=== PATIENT | female | born 1955 | race Caucasian/White ===

== ENCOUNTER 2022-12-18 15:44 | Emergency (ER) | payer MEDICARE ==
[~2022-12-18] VITALS: Ht 170.2 cm; Wt 56.0 kg
[2022-12-18 15:51] VITALS: O2SAT 98
[2022-12-18 16:47] LABS: BASOPHILS % 0.7 % (0.0-2.0); EOSINOPHILS % 1.1 % (0.0-5.0); HEMATOCRIT. 37.3 % (36.0-48.0); HEMOGLOBIN. 12.8 g/dL (12.0-16.0); MEAN CORPUSCULAR HEMOGLOBIN 28.1 pg (28.0-32.0); MEAN CORPUSCULAR HGB CONC 34.3 g/dL (31.0-37.0); MEAN PLATELET VOLUME 8.7 fl (7.4-10.4); NEUTROPHILS % 73.2 % (40.0-76.0); PLATELET 273 x1000/uL (130-400); RED BLOOD CELL COUNT 4.54 mill/uL (4.2-5.4); RED CELL DISTRIBUTION WIDTH 13.7 % (11.6-14.6); WHITE BLOOD COUNT 8.8 x1000/uL (4.5-11.0)
[2022-12-18] MEDS ORDERED: MORPHINE SULFATE 4 MG/ML CPJ (NOT FOR IM USE) IV ONE (17:00)
[2022-12-18] MEDS ORDERED: ONDANSETRON HCL 4MG/2ML INJ IV ONE (17:00)
[2022-12-18 17:04] LABS: CHLORIDE 108 mEq/L (98-107); INDEX HEMOLYSI 1 (1-3); INDEX ICTERIC 1 (1-4); INDEX LIPEMIC 1 (1-3); POTASSIUM 3.5 mEq/L (3.5-5.1); SODIUM 139 mEq/L (136-145)
[2022-12-18 17:14] LABS: ALANINE AMINOTRANSFERASE 21 IU/L (13-61); ALBUMIN 3.9 g/dL (3.4-5.0); ASPARTATE AMINOTRANSFERASE 23 IU/L (15-37); BILIRUBIN TOTAL 0.4 mg/dL (0.1-1.0); CALCIUM 8.7 mg/dL (8.5-10.1); CARBON DIOXIDE 26 mEq/L (21-32); CREATININE 0.8 mg/dL (0.6-1.3); GLUCOSE 125 mg/dL (70-105); NT PRO B-TYPE NATRIURETIC PEP 77 pg/mL (5-125); PROTEIN TOTAL 7.5 g/dL (6.0-8.3); TROPONIN I HIGH SENSITIVITY 7 ng/L (<54); UREA NITROGEN BLOOD 21 mg/dL (7-21)
[2022-12-18] MEDS ORDERED: HYDROMORPHONE HCL/PF 2MG/ML CPJ IV ONE ×2 (17:30→19:15)
[2022-12-18] MEDS ORDERED: LORAZEPAM 2MG/ML CPJ IV ONE (19:15)
[2022-12-18] MEDS ORDERED: SODIUM CHLORIDE 0.9% 1,000 ML IV ONE (19:15)
[2022-12-18] MEDS ORDERED: NALOXONE HCL 1 MG/ML 2ML VIAL ONE (20:16)
[2022-12-19] MEDS ORDERED: HYDROMORPHONE HCL/PF 2MG/ML CPJ IV ONE ×3 (01:45→09:45)
[2022-12-19] MEDS ORDERED: ONDANSETRON HCL 4MG/2ML INJ IV ONE ×3 (02:00→10:00)
[2022-12-19] MEDS ORDERED: HEPARIN 5000 UNITS/ML VIAL SUBCUT ONE (08:45)
[2022-12-19] MEDS ORDERED: ONDANSETRON HCL 4MG/2ML INJ IV NR (10:00)
[2022-12-19 10:05] VITALS: BP 133/69; PULSE 81; RESP 11; TEMP 98
== END 2022-12-19 10:01 | disposition short-term general hospital (02) ==
LOC: ER 15:44 → CANBEDREQ 12-19 09:59 → ER 12-19 10:01
DX: S72.91XA Unspecified fracture of right femur, initial encounter for closed fracture (principal); W01.0XXA Fall on same level from slipping, tripping and stumbling without subsequent striking against object, initial encounter; Y93.89 Activity, other specified; Y92.89 Other specified places as the place of occurrence of the external cause; Y99.8 Other external cause status
CPT/HCPCS: 99285; 96374; 96375; 71045; 80053; 83880; 85025; 84484; 36415; 73552; 93005; 96376 ×2; J2060; J2310; J2405 ×2; J1170 ×2; J2270; J7030; J1644; A4315